=== PATIENT | female | born 1975 | race Two or more races ===

== ENCOUNTER 2020-05-17 11:38 | Outpatient (CLI) | payer OTHER | END 2020-05-17 11:44 | disposition home or self-care (01) | LOC: RAD 11:38 | PROVIDERS: ATTEND Orthopaedic Surgery Sports Medicine | DX: M79.672 Pain in left foot (principal) ==

== ENCOUNTER 2022-07-03 13:26 | Emergency (ER) | payer OTHER ==
[~2022-07-03] VITALS: Ht 154.9 cm; Wt 56.2 kg
[2022-07-03] MEDS ORDERED: DICLOFENAC POTA50 MG PO (16:34)
== END 2022-07-03 16:38 | disposition home or self-care (01) ==
LOC: ER 13:26
DX: M25.572 Pain in left ankle and joints of left foot (principal)

== ENCOUNTER 2023-04-13 13:30 | Outpatient (CLI) | payer OTHER ==
[~2023-04-13 13:30] MED LIST: DICLOFENAC POTA50 MG PO
== END 2023-04-13 13:50 | disposition home or self-care (01) ==
LOC: MAMO-SONO 13:30
DX: N60.11 Diffuse cystic mastopathy of right breast (principal); N60.12 Diffuse cystic mastopathy of left breast; N92.0 Excessive and frequent menstruation with regular cycle

== ENCOUNTER 2025-05-22 13:45 | Outpatient (CLI) | payer OTHER | END 2025-05-22 13:47 | disposition home or self-care (01) | LOC: MRI 13:45 | PROVIDERS: ATTEND Chiropractor | DX: M50.10 Cervical disc disorder with radiculopathy, unspecified cervical region (principal); M50.80 Other cervical disc disorders, unspecified cervical region; M99.01 Segmental and somatic dysfunction of cervical region; M75.22 Bicipital tendinitis, left shoulder; M75.42 Impingement syndrome of left shoulder | CPT/HCPCS: 72141 ==

== ENCOUNTER 2025-05-29 13:44 | Outpatient (CLI) | payer OTHER | END 2025-05-29 13:50 | disposition home or self-care (01) | LOC: SONOGRAMA 13:44 | DX: M25.512 Pain in left shoulder (principal); M75.102 Unspecified rotator cuff tear or rupture of left shoulder, not specified as traumatic ==